=== PATIENT | male | born 1975 | race Caucasian/White ===

== ENCOUNTER → 2016-10-18 | Outpatient (CLI) | payer OTHER ==
[~2016-10-18] MED LIST: DULOXETINE HYDR60 MG PO; DULOXETINE60 MG PO; FLOMAX0.4 MG PO; HYDROCODONE1 TABLET PO; LORTAB 5/500 501 TAB PO; NORCO 325 MG-51 TAB PO; PHENERGAN 25MG.25 M1 PO; PYRIDIUM 200MG200 MG PO; VITAMIN D310000 UNI1 PO
--- NOTE | 2016-10-18 18:39 | RADIOLOGY REPORT PS360 ---
KUB (SINGLE VIEW) HISTORY: RT SIDE ABD PAIN, HEMATURI, HX KIDNEY STONES COMPARISON: 01/05/2010 FINDINGS: The bowel gas pattern is unremarkable. No obvious obstruction.. 3 mm calcific density overlies the lower pole of the left kidney consistent with nephrolithiasis.. No acute bony anomalies evident. Prior cholecystectomy IMPRESSION: Left nephrolithiasis
== END ==
LOC: RAD 17:35
DX: R10.9 Unspecified abdominal pain (principal); R31.9 Hematuria, unspecified; Z87.442 Personal history of urinary calculi